=== PATIENT | female | born 1995 | race Two or more races ===

== ENCOUNTER → 2019-06-14 | Outpatient (CLI) | payer OTHER, SELFPAY ==
[2019-06-19 09:59] LABS: HPV HC, High Risk Negative (Negative)
[2019-06-21 18:12] LABS: HPV Reflexed? YES, CHARGE PATIENT
== END | disposition home or self-care (01) ==
PROVIDERS: Referring Provider Obstetrics & Gynecology; Visit Provider Obstetrics & Gynecology
DX: Z12.4 Encounter for screening for malignant neoplasm of cervix (principal); R87.628 Other abnormal cytological findings on specimens from vagina
CPT/HCPCS: 87624; 88175; G0145